=== PATIENT | male | born 1995 | race Caucasian/White ===

== ENCOUNTER 2024-11-26 12:56 | Emergency (ER) | payer OTHER, SELFPAY ==
--- NOTE | ~2024-11-26 | XR_ITS ---
EXAMINATION: XR wrist LT min 3V DATE: 11/26/2024 13:33 INDICATION: Left wrist pain and swelling TECHNIQUE: Posteroanterior, ulnar deviation, oblique, and lateral views of the left wrist were obtained. COMPARISON: none FINDINGS: Alignment is normal. No fracture. Joint spaces are normal. Soft tissues are unremarkable. IMPRESSION: 1. Negative left wrist radiographs. Reviewed, dictated and finalized at location A.
[2024-11-26 13:07] VITALS: BP 125/90; PULSE 69; RESP 16; TEMP 36.6; O2SAT 100
--- NOTE | 2024-11-26 13:33 | ED_ITS ---
HPI - Extremity Injury (Upper) General Chief Complaint: Extremity Injury, Upper Stated Complaint: left wrist pain Time Seen by Provider: 11/26/24 13:20 Source: patient and RN notes reviewed Mode of arrival: ambulatory Limitations: no limitations History of Present Illness HPI narrative: 29-year-old male presents Express Care complaining of left wrist pain for 3 days. Patient denies any apparent injury to his left wrist. Patient says he does a lot of repetitive movements with his left wrist at work. Patient reports pain and swelling. Patient denies any redness, bruising, fevers bites, chills, numbness, tingling or any other symptoms. Patient has not tried any [id number] help with symptoms. Related Data Allergies Allergy/AdvReac Type Severity Reaction Status Date / Time No Known Allergies Allergy Mild Unverified 12/02/11 16:12 Review of Systems Review of Systems: CONSTITUTIONAL: Denies fever, chills, or sweats. EYES: Denies visual changes, redness, or discharge. ENT: Denies rhinorrhea, congestion, sore throat, or otalgia. CARDIOVASCULAR: Denies chest pain, palpitations, or edema. RESPIRATORY: Denies cough or dyspnea. GASTROINTESTINAL: Denies abdominal pain, nausea, vomiting, or diarrhea. GENITOURINARY: Denies dysuria or hematuria. SKIN: Denies rash, wound, or itching. MUSCULOSKELETAL: Denies back pain, joint pain, or myalgia. Positive for left wrist swelling NEUROLOGIC: Denies headache, numbness, or weakness. PSYCHIATRIC: Denies anxiety or depression. All other systems reviewed are negative, except as documented in HPI. PMFSH Comments At the time of my signature, I reviewed and agree with the nursing past medical, surgical, social, and family history. There is no relevant family history pertinent to the patient complaint. Exam Narrative: GENERAL: This is a well-nourished, well-developed adult, in no apparent distress. They are non ill-appearing, nontoxic appearing. HEAD: normocephalic, atraumatic. EYES: Sclera clear/white. Vision is grossly intact. Conjunctiva normal. Extraocular movement intact. EARS: External ears normal Hearing grossly intact. NOSE: External nose normal THROAT: Mucous membranes moist NECK: Neck supple CARDIOVASCULAR: Regular rate and rhythm RESPIRATORY: Respiratory rate normal, respiratory effort nonlabored, no r espiratory distress NEURO: awake, alert, and oriented to person, place and time. There were no obvious focal neurologic abnormalities. EXTREMITIES: Left wrist: No obvious deformity, injury, bruising, redness. Left wrist mildly edematous. Mild tenderness to full range of motion. Wrist is tender throughout. Capillary refill less than 3 seconds. Left radial Pulse 2 +palpable. Normal sensation. Neurovascular status intact distal injury. Patient able to wiggle his fingers. Patient can make a fist, stop sign, thumbs- up sign, okay sign. Radial and ulnar nerve distribution intact. BACK: Nontender without deformity. Course Course Emergency Course: Portions of this record may have been created with voice recognition software Level of Care: Express Care Visit Vital Signs Vital signs: Vital Signs Temperature 97.9 F 11/26/24 13:07 Pulse Rate 69 11/26/24 13:07 Respiratory Rate 16 11/26/24 13:07 Blood Pressure 125/90 11/26/24 13:07 Pulse Oximetry 100 11/26/24 13:07 Oxygen Delivery Room Air 11/26/24 13:07 Temperature 97.9 F 11/26/24 13:07 Pulse Rate 69 11/26/24 13:07 Respiratory Rate 16 11/26/24 13:07 Blood Pressure 125/90 11/26/24 13:07 Pulse Oximetry 100 11/26/24 13:07 Oxygen Delivery Room Air 11/26/24 13:07 Reviewed MDM - Extremity Injury (Upper) MDM Narrative Medical decision making narrative: Gout score of 2. Patient has no history and minimal risk factors of gout, low suspicion of a gout attack. X-ray of left wrist negative for any fractures or acute findings.. Likely wrist injury from repetitive movements. Patient given Elliot wrap. Recommend conservative therapy. Discussed physical exam findings. Advised supportive measures and signs/symptoms to go to the ER. Pt is appropriate for outpt treatment and f/u. Differential Diagnosis Differential diagnosis: Likely sprain and strain of wrist, fracture of wrist and other (Gout, arthritis ) Imaging Data Radiologist's impression: ITS Impressions Wrist X-Ray 11/26/24 13:52 IMPRESSION: 1. Negative left wrist radiographs. Critical Care Time Critical Care Time Critical Care Time: No Discharge Plan Discharge Clinical Impression: Acute pain of left wrist Patient Disposition: Home Condition: Stable Instructions: Wrist Sprain (ED) Additional Instructions: The x-ray left wrist is negative for any fractures or acute findings. Rest and elevate left wrist, uses tolerated. Apply ice 15-20 minute intervals several times a day Keep it wrapped with ELLIOT her wear a wrist cock-up splint. You may take ibuprofen 600 mg to 800 mg every 6-8 hours. Do not exceed more than 800 mg of ibuprofen per dose. Do not exceed more than 3200 mg ibuprofen in a day. You may take up to 1000 mg Tylenol every 6-8 hours. Do not exceed 1000 mg per dose, do exceed more than 4000 mg of Tylenol in a day. Follow up with your primary care provider or orthopedist as needed in 1-2 weeks especially if pain persist. Patient Language: Latvian Follow-up/Referrals: Rashawn West MD [Physician, Orthopedics] Yasir,ROSE MARY Chang [Primary Care Provider] Time of Disposition: 13:59
== END 2024-11-26 14:03 | disposition home or self-care (01) ==
PROVIDERS: PCP Physician Assistant
DX: M25.532 Pain in left wrist (principal)
CPT/HCPCS: 73110; 99203; G0463